=== PATIENT | female | born 1965 | race Asian ===

== ENCOUNTER 2017-02-20 11:56 | Emergency (ER) | payer OTHER ==
[2017-02-20 12:10] VITALS: O2SAT 96
[2017-02-20] MEDS ORDERED: PROPARACAINE 0.5% 15 ML OPHT DROP ONE (12:29)
[2017-02-20] MEDS ORDERED: NS 1,000 ML IV ONE (12:43)
[2017-02-20] MEDS ORDERED: APRACLONIDINE 0.5% LEFTEYE ONE ×2 (12:44→14:42)
[2017-02-20] MEDS ORDERED: TIMOLOL 0.5% TAKEHOME ONE (12:49)
[2017-02-20] MEDS ORDERED: PILOCARPINE 1% 15 ML OPHT.BTL LEFTEYE ONE (12:51)
[2017-02-20] MEDS ORDERED: fentaNYL 100 MCG/2 ML INJ IVP ONE (12:54)
[2017-02-20] MEDS ORDERED: fentaNYL 100 MCG/2 ML INJ ONE (13:00)
--- NOTE | 2017-02-20 13:08 | EDPHY ---
H & P Smoking Status: Never smoked Time Seen by Provider: 02/20/17 12:01 HPI/ROS: CHIEF COMPLAINT: Left eye pain History by patient HISTORY OF PRESENT ILLNESS: 52 old woman with history of migraine headaches and ocular migraines presents complaining of 3-4 days of severe retro-orbital headache in the left eye, eye redness, and progressive vision loss in that eye. She denies any trauma to the eye. There is no pain with extraocular movements. There is no fever. The pain began before the redness on loss of vision. She has put some nbid-dxr-dlujakf wetting drops in the eye but nothing else. She initially thought it might be 1 of her ocular migraines, however these typically only occur when she drives at night and she no longer drives. She denies any visual halos, nausea or vomiting. She describes the pain as severe. REVIEW OF SYSTEMS: As in HPI, and all other systems reviewed and are negative (Ashley Rodrigues) Physical Exam: General: Alert, uncomfortable appearing Head: Normocephalic, atraumatic, no facial tenderness Extraocular movements intact without pain Pupils: Right pupill round reactive to light, no injection, left pupil mid dilated and fixed, left cornea is cloudy, positive erythema of conjunctiva and sclera Lids: Within normal limits bilaterally, no drainage Neuro: Awake alert oriented x3, cranial she is 12 intact, no pronator drift, normal gait Skin: No rashes or lesions, warm and dry (Ashley Rodrigues) Constitutional: Initial Vital Signs Temperature (C) 37.1 C 02/20/17 12:05 Heart Rate 74 02/20/17 12:05 Respiratory Rate 16 02/20/17 12:05 Blood Pressure 184/131 H 02/20/17 12:05 O2 Sat (%) 96 02/20/17 12:05 O2 Delivery Mode Room Air Allergies/Adverse Reactions: No Known Allergies Allergy (Unverified 02/20/17 12:11) Home Medications: Medication Instructions Recorded NK [No Known Home Meds] 02/20/17 MDM/Departure - MDM Medications Given: Timolol Maleate (Timoptic-Xe 0.5%) 1 drops [facility] Stop: 08/19/17 20:59 Last Admin: 02/20/17 13:28 Dose: 1 drop Discontinued Medications Acetazolamide (Diamox) 1,000 mg PO EDNOW ONE Stop: 02/20/17 14:39 Last Admin: 02/20/17 15:02 Dose: Not Given Apraclonidine HCl (Iopidine 0.5%) 1 drops LEFTEYE EDNOW ONE Stop: 02/20/17 14:43 Last Admin: 02/20/17 15:02 Dose: Not Given Fentanyl (Sublimaze) 50 mcg IVP EDNOW ONE Stop: 02/20/17 12:55 Last Admin: 02/20/17 12:58 Dose: 50 mcg Sodium Chloride (Ns) 1,000 mls @ 0 mls/hr IV ONCE ONE; Wide Open PRN Reason: Protocol Stop: 02/20/17 12:44 Last Admin: 02/20/17 12:52 Dose: 1,000 mls Pilocarpine (Isopto Carpine 2%) 1 drops LEFTEYE QID ONE Stop: 02/20/17 14:41 Last Admin: 02/20/17 15:02 Dose: Not Given ED Course/Re-evaluation: 52-year-old woman presents with 3-4 days of left eye pain, redness and loss of vision. Exam is notable for a red eye with a cloudy cornea and a mid-dilated fixed pupil. Eye pressure in the left eye was 79 by Samm-Pen and 33 in the right eye. All consistent with acute angle closure glaucoma. Patient was laid flat, given timolol 0.5% eyedrop into the affected eye. None of the other indicated medications were available from the [facility] pharmacy. I discussed the case with Dr. Traylor, on-call for Ophthalmology who does not have access to his surgery Center today but can't perform a procedure on her 1st thing tomorrow morning. He recommended giving the patient immediately apraclonidine 1% 1 drop, pilocarpine 1% 1 drop once, prednisolone 1 drop once, and acetazolamide 1 g orally or IV. He then recommended the patient continue tonight at home on acetazolamide 500 mg twice daily and Combigan drops 2 drops twice a day beginning tonight. He recommended not continuing the patient on prednisolone drops at home. Because the medications necessary to treat this acute ocular emergency are not available at [facility] the patient was transferred to [facility] to get the medication she needs. I discussed this with the patient and her daughter. I discussed the case with Dr. aB at [facility]. Patient was transferred by private car. (Ashley Rodrigues) I took over care of this patient at 2:40 p.m.. I evaluated her at this time. After my evaluation she was given Diamox 1000 mg orally and pilocarpine drops as well as apraclonidine drops to the left eye. I have spoken with on-call problem manager Dr. Traylor. He requested that we paged him on the patient's arrival and he will see her in the emergency department. He has been notified she is here in the emergency department. 2:50 p.m., Dr. Traylor is at the patient's bedside currently. He is going to take her down the brown to the surgery center for definitive treatment. 2:55 p.m., patient transferred from the emergency department with Dr. Traylor to the [facility] surgery Center for definitive treatment. Her remaining emergency department course under my care has been uneventful (Сергей Ba) - Depart Disposition: To OP Cath/Surgery Clinical Impression: Acute angle-closure glaucoma Qualifiers: Laterality: left Qualified Code(s): H40.212 - Acute angle-closure glaucoma, left eye Condition: Good Additional Instructions: Go directly to [facility] Emergency Department. They will be expecting you and can give you the rest of medications the need to treat your acute eye problem. Referrals: JOAQUINA TORRES [Other] - As per Instructions
[2017-02-20 13:53] VITALS: BP 210/113; PULSE 76; RESP 16; TEMP 98.4
[2017-02-20] MEDS ORDERED: acetaZOLAMIDE 250 MG TAB PO ONE (14:38)
[2017-02-20] MEDS ORDERED: PILOCARPINE 2% LEFTEYE ONE (14:40)
[2017-02-20] MEDS ORDERED: TIMOLOL 0.5% LEFTEYE SCH (21:00)
== END 2017-02-20 16:19 | disposition home or self-care (01) ==
LOC: CED 11:56
DX: H40.212 Acute angle-closure glaucoma, left eye (principal)
CPT/HCPCS: 96374; J3010